=== PATIENT | female | born 1980 | race African-American/Black ===

== ENCOUNTER 2016-11-07 08:59 | Emergency (ER) | payer MEDICAID ==
[~2016-11-07] VITALS: Ht 170.2 cm; Wt 68.0 kg
[2016-11-07] VITALS (42 sets, daily range): BP systolic 117–239; BP diastolic 60–110; PULSE 44–108; RESP 16–22; TEMP 97.7–97.9; O2SAT 97–100
[~2016-11-07 08:59] MED LIST: CYCL-36 PO; IBUP600T26 PO; PRIN10TA PO
--- NOTE | 2016-11-07 09:14 | PD ---
HPI Chief Complaint: GI Complaint Time Seen by Provider: 09:14 Travel History International Travel<30 days: No Contact w/Intl Traveler<30days: No Traveled to known affect area: No History of Present Illness HPI 36-year-old female came to the emergency room with history of headache, dizziness, nausea, vomiting, left-sided chest pain and just not feeling well. She appeared lethargic and I had to ask her multiple times in order to get a proper answer. Her blood pressure upon arrival into the room was 235 systolic. She appeared to be in moderate distress. She was diaphoretic as well. At that time there was no family member next to her to give any additional history. Patient told me that she has history of hypertension and takes a medication like she supposed to. She took a dose of that this morning. She missed the dose the day before yesterday. [facility] Past Medical History Narrative Medical List of her past medical, surgical, social and family history is reviewed from the nursing note. Cardiovascular Problems: Yes (htn) Family History Family Hypercholesterolemia: Yes Social History Alcohol Use: Yes Tobacco Use: Yes Substance Use: Yes (marijuana) Allergies-Medications (Allergen,Severity, Reaction): Coded Allergies: No Known Allergies (Verified , 11/07/16) Comments No known drug allergies. Reported Meds & Prescriptions Reported Meds & Active Scripts Active Reported Metoprolol Tartrate 25 Mg Tab 25 Mg PO BID Narrative Medication List of her home medications reviewed from the nursing note. Review of Systems Except as stated in HPI: all other systems reviewed are Neg Physical Exam Narrative GENERAL: Lethargic, moderate distress SKIN: Cool and diaphoretic HEAD: Atraumatic. Normocephalic. EYES: Pupils equal and round. No scleral icterus. No injection or drainage. ENT: No nasal bleeding or discharge. Mucous membranes pink and moist. NECK: Trachea midline. No JVD. CARDIOVASCULAR: Regular rate and rhythm. No murmur appreciated. RESPIRATORY: No accessory muscle use. Clear to auscultation. Breath sounds equal bilaterally. GASTROINTESTINAL: Abdomen soft, non-tender, nondistended. Hepatic and splenic margins not palpable. MUSCULOSKELETAL: No obvious deformities. No clubbing. No cyanosis. No edema. NEUROLOGICAL: Lethargic and answering questions slow but appropriately. GCS of 14. No obvious cranial nerve deficits. Motor strength was tested and was 4 out of 5 on all 4 extremities. Patient had to be asked multiple times to move her extremity and then she slowly did. Normal speech. PSYCHIATRIC: Appropriate mood and affect; insight and judgment normal. Data Data Last Documented VS Vital Signs Date Time Temp Pulse Resp B/P Pulse Ox O2 Delivery O2 Flow Rate FiO2 11/07/16 16:45 78 20 123/62 100 Ventilator 40 11/07/16 14:40 97.7 Orders Electrocardiogram (11/07/16:17) Prothrombin Time / Inr (Pt) (11/07/16 09:17) Complete Blood Count With Diff (11/07/16:17) Comprehensive Metabolic Panel (11/07/16:17) Creatine Kinase (Cpk) (11/07/16:17) Drug Screen, Random Urine (11/07/16:17) Troponin I (11/07/16:17) Urinalysis - C+S If Indicated (11/07/16 09:17) Ct Brain W/O Iv Contrast(Rout) (11/07/16 09:17) Chest, Single Ap (11/07/16:17) Ecg Monitoring (11/07/16 09:17) Iv Access Insert/Monitor (11/07/16:17) Oximetry (11/07/16 09:17) Sodium Chloride 0.9% Flush (Ns Flush) (11/07/16 09:30) Hydralazine Inj (Apresoline Inj) (11/07/16 09:30) Clonidine (Catapres) (11/07/16 09:30) Ondansetron Inj (Zofran Inj) (11/07/16 09:30) Nicardipine Inj (Cardene Inj) (11/07/16 09:43) Nicardipine Inj (Cardene Inj) (11/07/16 09:45) Rocuronium Inj (Zemuron Inj) (11/07/16 10:00) Etomidate Inj (Amidate Inj) (11/07/16 10:00) Propofol 1000 Mg/100 Ml Inj (Diprivan 10 (11/07/16 10:00) Midazolam 100 Mg/Ml Inj (Versed 100 Mg/M (11/07/16 10:00) Urinary Catheter Insert/Apply (11/07/16 09:47) ^ Orogastric Tube (11/07/16 09:47) Propofol 1000 Mg/100 Ml Inj (Diprivan 10 (11/07/16 09:49) Etomidate Inj (Amidate Inj) (11/07/16 09:49) Rocuronium Inj (Zemuron Inj) (11/07/16 09:49) Mannitol Inj (Mannitol Inj) (11/07/16 10:15) Cta Brain W Iv Contrast W 3d (11/07/16 ) Mannitol Inj (Mannitol Inj) (11/07/16 10:13) Chest, Single Ap (11/07/16 ) Potassium Chlor 20 Meq Premix (Kcl 20 Me (11/07/16 10:30) Cta Neck W Iv Contrast W 3d (11/07/16 ) Chest, Single Ap (11/07/16 ) Urine Culture (11/07/16 10:28) Iohexol 350 Inj (Omnipaque 350 Inj) (11/07/16 11:16) Arterial Blood Gas (Abg) (11/07/16 11:20) Midazolam 100 Mg/Ml Inj (Versed 100 Mg/M (11/07/16 11:27) Radiology Film Requests (11/07/16 ) Radiology Film Requests (11/07/16 ) Radiology Film Requests (11/07/16 ) Radiology Film Requests (11/07/16 ) Radiology Film Requests (11/07/16 ) Arterial Blood Gas (Abg) (11/07/16 12:43) Resp Ventilation- Volume (11/07/16 10:01) Labs Laboratory Tests Test 11/07/16 11/07/16 11/07/16 11/07/16 09:30 10:28 11:20 12:43 White Blood Count 8.0 TH/MM3 Red Blood Count 4.42 MIL/MM3 Hemoglobin 12.5 GM/DL Hematocrit 36.9 % Mean Corpuscular Volume 83.6 FL Mean Corpuscular Hemoglobin 28.3 PG Mean Corpuscular Hemoglobin 33.9 % Concent Red Cell Distribution Width 15.8 % Platelet Count 162 TH/MM3 Mean Platelet Volume 9.1 FL Neutrophils (%) (Auto) 56.7 % Lymphocytes (%) (Auto) 31.8 % Monocytes (%) (Auto) 5.3 % Eosinophils (%) (Auto) 5.6 % Basophils (%) (Auto) 0.6 % Neutrophils # (Auto) 4.5 TH/MM3 Lymphocytes # (Auto) 2.5 TH/MM3 Monocytes # (Auto) 0.4 TH/MM3 Eosinophils # (Auto) 0.4 TH/MM3 Basophils # (Auto) 0.0 TH/MM3 CBC Comment DIFF FINAL Differential Comment Prothrombin Time 10.9 SEC Prothromb Time International 1.0 RATIO Ratio Sodium Level 138 MEQ/L Potassium Level 2.8 MEQ/L Chloride Level 105 MEQ/L Carbon Dioxide Level 20.8 MEQ/L Anion Gap 12 MEQ/L Blood Urea Nitrogen 5 MG/DL Creatinine 0.89 MG/DL Estimat Glomerular Filtration 86 ML/MIN Rate Random Glucose 132 MG/DL Calcium Level 8.8 MG/DL Total Bilirubin 0.4 MG/DL Aspartate Amino Transf 22 U/L (AST/SGOT) Alanine Aminotransferase 16 U/L (ALT/SGPT) Alkaline Phosphatase 86 U/L Total Creatine Kinase 92 U/L Troponin I 0.10 NG/ML Total Protein 8.5 GM/DL Albumin 3.7 GM/DL Urine Color LIGHT-YELLOW Urine Turbidity HAZY Urine pH 8.0 Urine Specific Clark 1.008 Urine Protein NEG mg/dL Urine Glucose (UA) NEG mg/dL Urine Ketones 10 mg/dL Urine Occult Blood NEG Urine Nitrite NEG Urine Bilirubin NEG Urine Urobilinogen LESS THAN 2.0 MG/DL Urine Leukocyte Esterase NEG Urine RBC LESS THAN 1 /hpf Urine WBC 2 /hpf Urine Squamous Epithelial <1 /hpf Cells Urine Amorphous Sediment FEW Urine Bacteria OCC /hpf Urine Mucus FEW /lpf Microscopic Urinalysis Comment CATH-CULTURE IND Urine Opiates Screen NEG Urine Barbiturates Screen NEG Urine Amphetamines Screen NEG Urine Benzodiazepines Screen NEG Urine Cocaine Screen NEG Urine Cannabinoids Screen POS Blood Gas Puncture Site RT RADIAL RT BRACHIAL Blood Gas Patient Temperature 98.6 98.6 Blood Gas HCO3 24 mmol/L 23 mmol/L Blood Gas Base Excess 0.4 mmol/L -0.4 mmol/L Blood Gas Oxygen Saturation 98 % 95 % Arterial Blood pH 7.46 7.48 Arterial Blood Partial 34 mmHg 31 mmHg Pressure CO2 Arterial Blood Partial 485 mmHG 90 mmHG Pressure O2 Arterial Blood Oxygen Content 18.0 Vol % 16.5 Vol % Arterial Blood 2.0 % 1.7 % Carboxyhemoglobin Arterial Blood Methemoglobin 0.5 % 0.6 % Blood Gas Hemoglobin 12.2 G/DL 12.3 G/DL Oxygen Delivery Device VENT VENT Blood Gas Ventilator Setting AC16/500/PEEP3 AC20/500/PEEP3 Blood Gas Inspired Oxygen 100 % 100 % MDM Medical Decision Making Medical Screen Exam Complete: Yes Emergency Medical Condition: Yes Medical Record Reviewed: Yes Interpretation(s) Twelve-lead EKG was reviewed by me. Normal sinus rhythm, normal axis, bradycardia, nonspecific ST-T wave changes. Heart rate of 57 bpm per Differential Diagnosis Intracranial bleed, hypertensive emergency Narrative Course 10:27 AM patient initially was taken immediately to the CT scanner and also was given 20 mg of IV hydralazine to bring the blood pressure down. Soon after the CT I was notified that she had a massive intraparenchymal bleed in her left occipital lobe. I have contacted the neurosurgeon who is scrubbed in the OR. I spoke with the OR nurse who relayed the message about the CT finding. I was told to give the patient 50 mg of IV mannitol and to get a CT angiogram of the brain. I decided to intubate the patient to protect her airway since her mental status was progressively going down. Her GCS was 12 just before I decided to intubate her. Please refer to please refer to my procedure note regarding the intubation. I spoke with her partner/significant other and told her about the CT finding and the diagnosis. Awaiting for the CT brain angiogram to be done and resulted. Patient was started on Cardene drip and propofol drip. 10:30 AM her potassium is critically low and I will replace that. Her troponin is slightly elevated probably from the intracranial hemorrhage. She is somewhat acidotic with a bicarbonate being 20 as well. 10:33 AM chest x-ray was reviewed by me. The ET tube was just at the doyle. I asked the respiratory therapist to pull the tube out by 1.5 cm. Patient will be going to CT soon. 11:48 AM I was told by the OR nurse of Dr. Gotti that patient needs to be transferred out since the CT angiogram shows AVM as well as an aneurysm. I discussed the case with Dr. Qiu from [facility] who is the neurosurgeon and has accepted the patient. He wants the patient in the neuro critical ICU and I'm waiting for the winch derrick operator to call back so that I can discuss the case with him as well. I've been told his name is Dr. Nguyen. CD are being made of the films. Patient's last blood pressure was 168/75. Nurse is going up on the Cardene drip. Patient continues to be in critical condition. 12:08 PM I just spoke with Dr. Nguyen from neuro ICU at [facility] and he has accepted the case. [facility] will be sending their helicopter and currently waiting for them to call us and coordinate. Patient's last blood pressure when I was in the room was 150 systolic. Pupils are equal and reactive and she looks well sedated. Critical Care Narrative Aggregate critical care time was 150 minutes. Time to perform other separately billable procedures was not included in the critical care time. My time did not include minutes spent treating any other patients simultaneously or on activities that did not directly contribute to the patient's treatment. The services I provided to this patient were to treat and/or prevent clinically significant deterioration that could result in: Altered mental status, hypertensive emergency, intracranial bleed, Cardene drip, vent management, coordinating emergent transfer I provided critical care services requiring my management, as noted below: Chart data review, documentation time, medication orders and management, vital sign assessments/reviewing monitor data, ordering and reviewing lab tests, ordering and interpreting/reviewing x-rays and diagnostic studies, care of the patient and discussion of the patient with the admitting physicians. Procedures Procedure Narrative After the risks and benefits were discussed the following procedure was performed: INTUBATION: The patient was put in optimal position for the procedure. Rapid sequence intubation was initiated by me using 20 milligrams of etomidate IV and 100 milligrams of rocuronium IV. The patient was intubated with a 7.5 cuffed endotracheal tube. Tube placement was confirmed by visualization of the tube and balloon passing through the cords, capnometry and subsequent chest x-ray. Breath sounds were equal and well aerated bilaterally postintubation. No breath sounds over stomach. Patient tolerated procedure well. EKG Prior to Arrival: No Physician Communication Physician Communication Dr. Gotti, Dr. Qiu from [facility], Dr. Nguyen Diagnosis Primary Impression: Intraparenchymal hemorrhage of brain Additional Impressions: Hypertensive emergency Hypokalemia Respiratory failure Qualified Code: J96.00 - Acute respiratory failure, unspecified whether with hypoxia or hypercapnia Anterior cerebral artery aneurysm Cerebral AVM Disposition: 70 TRANSFER TO OTHER FACILITY Condition: Critical Yun Chavez MD Nov 07, 2016 09:14
[2016-11-07] MEDS ORDERED: hydrALAZINE HCL 20 MG/ML VIAL IV PUSH ONE (09:30)
[2016-11-07] MEDS ORDERED: cloNIDine HCL 0.2 MG TAB PO ONE (09:30)
[2016-11-07] MEDS ORDERED: ONDANSETRON HCL 4 MG/2 ML VIAL IV PUSH ONE (09:30)
[2016-11-07] MEDS ORDERED: SODIUM CHLORIDE 0.9% FLUSH 10 ML FLUSH IVF PRN (09:30)
--- NOTE | 2016-11-07 09:39 | RADRPT ---
EXAM DATE/TIME: 11/07/2016 09:17 [facility] COMPARISON: No previous studies available for comparison. INDICATIONS : Vomiting, short of breath, vertigo today MEDICAL HISTORY : None. SURGICAL HISTORY : None. ENCOUNTER: Initial ACUITY: 1 day PAIN SCORE: 0/10 LOCATION: Bilateral chest FINDINGS: A single view of the chest demonstrates the lungs to be symmetrically aerated without evidence of mas s, infiltrate or effusion. The cardiomediastinal contours are unremarkable. Osseous structures are intact. CONCLUSION: No acute disease. Jag Oshea MD on November 07, 2016 at 9:37 Board Certified Radiologist. This report was verified electronically.
[2016-11-07] MEDS ORDERED: niCARdipine INJ 25 MG in SODIUM CHLOR 0.9% 250 ML INJ 250 ML IV SCH (09:45)
[2016-11-07] MEDS ORDERED: PROPOFOL 1000 MG/100 ML INJ 100 ML ONE (09:49)
[2016-11-07] MEDS ORDERED: ROCURONIUM INJ 50 MG/5 ML VIAL ONE (09:49)
[2016-11-07] MEDS ORDERED: ETOMIDATE 20 MG/10 ML VIAL ONE (09:49)
[2016-11-07 09:50] LABS: AUTOMATED NEUTROPHIL # 4.5 TH/MM3 (1.8-7.7); BASOPHIL % 0.6 % (0.0-2.0); EOSINOPHIL # 0.4 TH/MM3 (0-0.4); EOSINOPHIL % 5.6 % (0.0-4.0); HEMATOCRIT 36.9 % (35.0-46.0); HEMO FLAGS DIFF FINAL; LYMPH % 31.8 % (9.0-44.0); LYMPHOCYTE # 2.5 TH/MM3 (1.0-4.8); MEAN CELL VOLUME 83.6 FL (80.0-100.0); MEAN CORPUSCULAR HEMOGLOBIN 28.3 PG (27.0-34.0); MEAN CORPUSCULAR HGB CONC 33.9 % (32.0-36.0); MONO % 5.3 % (0.0-8.0); NEUT % 56.7 % (16.0-70.0); PLATELET COUNT 162 TH/MM3 (150-450); RED BLOOD COUNT 4.42 MIL/MM3 (4.00-5.30); RED CELL DISTRIBUTION WIDTH 15.8 % (11.6-17.2)
[2016-11-07 09:55] LABS: PROTHROMBIN TIME - PATIENT 10.9 SEC (9.8-11.6)
--- NOTE | 2016-11-07 09:56 | RADRPT ---
EXAM DATE/TIME: 11/07/2016 09:38 [facility] COMPARISON: CT BRAIN W/O CONTRAST, December 22, 2012, 14:43. INDICATIONS : Cephalgia, hypertension. RADIATION DOSE: 37.23 CTDIvol (mGy) MEDICAL HISTORY : Hypertension. SURGICAL HISTORY : None. ENCOUNTER: Initial ACUITY: 1 day PAIN SCALE: 4/10 LOCATION: cranial TECHNIQUE: Multiple contiguous axial images were obtained of the head. Using automated exposure control and adj ustment of the mA and/or kV according to patient size, radiation dose was kept as low as reasonably a chievable to obtain optimal diagnostic quality images. DICOM format image data is available electro nically for review and comparison. FINDINGS: There is a slightly less than 6.5 cm parenchymal hematoma in the left occipital region. There is mode rate regional mass effect with effacement of the hemispheric cortical sulci and compression and displ acement of the ipsilateral lateral ventricle. There is slight associated subfalcine midline shift. Th ere is no evidence of hemorrhage in the contralateral right hemisphere or in the posterior fossa. The extracranial structures are grossly benign. CONCLUSION: 6.5 cm left occipital parenchymal hematoma Latrell Reich MD on November 07, 2016 at 9:49 Board Certified Radiologist. This report was verified electronically.
[2016-11-07] MEDS ORDERED: ETOMIDATE 20 MG/10 ML VIAL IV PUSH ONE (10:00)
[2016-11-07] MEDS ORDERED: MIDAZOLAM 100 MG/ML INJ 100 ML IV SCH (10:00)
[2016-11-07] MEDS ORDERED: PROPOFOL 1000 MG/100 ML INJ 100 ML IV SCH (10:00)
[2016-11-07] MEDS ORDERED: ROCURONIUM INJ 100 MG/10 ML VIAL IV ONE (10:00)
[2016-11-07 10:12] LABS: ALKALINE PHOSPHATASE 86 U/L (45-117); ALT (GPT) 16 U/L (10-53); ANION GAP 12 MEQ/L (5-15); AST (GOT) 22 U/L (15-37); BICARBONATE 20.8 MEQ/L (21.0-32.0); BLOOD UREA NITROGEN 5 MG/DL (7-18); CHLORIDE 105 MEQ/L (98-107); GLOMERULAR FILTRATION RATE 86 ML/MIN (>89); SODIUM (NA) 138 MEQ/L (136-145); TOTAL BILIRUBIN ADULT 0.4 MG/DL (0.2-1.0)
[2016-11-07] MEDS ORDERED: MANNITOL INJ 50 ML ONE (10:13)
[2016-11-07] MEDS ORDERED: MANNITOL 12.5 GM/50 ML VIAL IV ONE (10:15)
[2016-11-07 10:28] LABS: CREATINE KINASE 92 U/L (26-192)
[2016-11-07 10:30] LABS: POTASSIUM 2.8 MEQ/L (3.5-5.1)
--- NOTE | 2016-11-07 10:46 | RADRPT ---
EXAM DATE/TIME: 11/07/2016 10:23 [facility] COMPARISON: CHEST SINGLE AP, November 07, 2016, 9:17. INDICATIONS : Headache and dizziness. MEDICAL HISTORY : None. SURGICAL HISTORY : None. ENCOUNTER: Initial ACUITY: 1 day PAIN SCORE: Non-responsive. LOCATION: Bilateral chest FINDINGS: The endotracheal tube has its tip directed into the right mainstem bronchus. This should be pulled ba ck 3 cm for more optimal positioning. A nasogastric has tip in stomach. Minimal central pulmonary vas cular congestion is noted. The heart is stable. CONCLUSION: Endotracheal tube has its tip directed into the right mainstem bronchus. This should be pulled back 3 cm for more optimal positioning. Minimal central pulmonary vascular congestion. Jag sOhea MD on November 07, 2016 at 10:43 Board Certified Radiologist. This report was verified electronically.
[2016-11-07 11:05] LABS: AMPHETAMINE, URINE NEG (NEG); BARBITURATES, URINE NEG (NEG); COCAINE, URINE NEG (NEG)
[2016-11-07 11:08] LABS: BACTERIA, URINE OCC /hpf; BLOOD, URINE NEG (NEG); COMMENT (UR) CATH-CULTURE IND; CULTURE IF INDICATED CATH CULTURE IND; GLUCOSE,URINE NEG (NEG); KETONE, URINE 10 mg/dL (NEG); MUCUS URINE FEW /lpf (OCC); NITRITE,URINE NEG (NEG); SQUAMOUS EPITHELIAL CELL URINE <1 /hpf (0-5); URINE COLOR LIGHT-YELLOW (YELLW/STRAW)
[2016-11-07] MEDS ORDERED: IOHEXOL 350 MG/ML 10 ML VIAL (for RAD DIAG) IV ONE (11:16)
[2016-11-07 11:25] LABS: BLOOD GAS BASE EXCESS 0.4 mmol/L (-2-2); BLOOD GAS HCO3 24 mmol/L (22-26); BLOOD GAS METHEMOGLOBIN 0.5 % (0-2); BLOOD GAS O2 HGB SATURATION 98 % (90-100); BLOOD GAS PCO2 34 mmHg (38-42); BLOOD GAS PO2 485 mmHG (61-120); BLOOD GAS TOTAL HGB 12.2 G/DL (12.0-16.0); CRITICAL VALUE NO; OXYGEN DEVICE VENT; TEMP CORR TO 98.6
[2016-11-07 11:26] LABS: DRAW SITE RT RADIAL; FIO2 100 %; NUMBER OF ARTERIAL PUNCTURES 1; STAT NO; ULNAR PULSE PRESENT; VENT SETTINGS AC16/500/PEEP3
[2016-11-07] MEDS ORDERED: MIDAZOLAM 100 MG/ML INJ 100 ML ONE (11:27)
[2016-11-07] MEDS: POTASSIUM CHLOR 20 MEQ PREMIX 100 ML IV SCH ×2 (11:35→13:30)
--- NOTE | 2016-11-07 11:35 | RADRPT ---
EXAM DATE/TIME: 11/07/2016 10:53 [facility] COMPARISON: CT BRAIN W/O CONTRAST, November 07, 2016, 9:38. CT BRAIN W/O CONTRAST, December 22, 2012, 14:43. CTA BRAI N W 3D RECON, November 07, 2016, 10:53. INDICATIONS : New brain bleed, headache with nausea and vomiting today IV CONTRAST: 70 cc Omnipaque 350 (iohexol) IV ; Cumulative dose for multiple exams. RADIATION DOSE: 27.74 CTDIvol (mGy) ; Combined studies MEDICAL HISTORY : Hypertension. SURGICAL HISTORY : None. ENCOUNTER: Initial ACUITY: 1 day PAIN SCALE: Non-responsive LOCATION: cranial Elevated flow velocities and ICA/CCA ratios have been found to correlate with increased degrees of vessel stenosis, calculated as percentage of diameter relative to a normal segment of distal ICA/CCA. TECHNIQUE: Volumetric scanning was performed using a multirow detector CT scanner. The data was post processed with a variety of visualization algorithms including full-volume maximum intensity projection, multip lanar sliding thin-slab reformation, curved-planar reformation, and surface-rendering techniques. Us ing automated exposure control and adjustment of the mA and/or kV according to patient size, radiatio n dose was kept as low as reasonably achievable to obtain optimal diagnostic quality images. DICOM f ormat image data is available electronically for review and comparison. FINDINGS: AORTIC ARCH: There is a three-vessel origin of the great vessels from the aorta. No evidence of ostial narrowing. RIGHT CAROTID: The common carotid artery is intact. The carotid bulb has a normal configuration without ulceration o r narrowing. The internal carotid artery lumen is smooth without stenosis. The external carotid kadie ry is intact. LEFT CAROTID: The common carotid artery is intact. The carotid bulb has a normal configuration without ulceration or narrowing. The internal carotid artery lumen is smooth without stenosis. The external carotid ar murtaza is intact. VERTEBRALS: The vertebral arteries have a symmetric diameter. No stenotic lesions are seen. CONCLUSION: Normal examination. Latrell Reich MD on November 07, 2016 at 11:27 Board Certified Radiologist. This report was verified electronically.
[2016-11-07] MEDS ORDERED: METO25TA3 PO (12:05)
--- NOTE | 2016-11-07 12:06 | RADRPT ---
EXAM DATE/TIME: 11/07/2016 10:53 [facility] COMPARISON: CT BRAIN W/O CONTRAST, November 07, 2016, 9:38. INDICATIONS : New brain bleed IV CONTRAST: 70 cc Omnipaque 350 (iohexol) IV RADIATION DOSE: 27.74 CTDIvol (mGy) ; Combined studies MEDICAL HISTORY : Hypertension. SURGICAL HISTORY : None. ENCOUNTER: Initial ACUITY: 1 day PAIN SCALE: Non-responsive LOCATION: cranial TECHNIQUE: Volumetric scanning was performed using a multi-row detector CT scanner. The data was post processed with a variety of visualization algorithms including full volume maximum intensity projection, multi -planar sliding thin slab reformation, curved planar reformation, and surface rendering techniques. Using automated exposure control and adjustment of the mA and/or kV according to patient size, radiat ion dose was kept as low as reasonably achievable to obtain optimal diagnostic quality images. DICO M format image data is available electronically for review and comparison. FINDINGS: Examination is abnormal. There is a bilobed collection of contrast measuring 3.5 x 3.7 mm and 2.9 x 4 .6 mm noted posterior to the large left occipital parenchymal hemorrhage with an apparently enlarged central draining vein concerning for an occipital AV malformation. Additionally, there is a focal col lection of contrast seen medially in the left parietal high convexity adjacent to the falx which appe ars to arise from a distal left A4 branch measuring 6.8 x 4.7 x 7.2 mm consistent with aneurysm. With there is a more subtle 2.0 x 3.3 x 2.2 mm apparent aneurysm arising from the left temporal M3 branch . The MCA and NICOLÁS branches are patent without significant focal stenosis or occlusion. There are nearly codominant vertebral arteries with patent flow to the basilar artery. Basilar artery is patent with flow to the posterior cerebral arteries bilaterally. Remainder of the exam demonstrates a large 6.5 cm left occipital lobe parenchymal hemorrhage with ass ociated mass effect. There is effacement of the left lateral ventricle with nearly 9 mm left to right subfalcine shift. Basilar cisterns appear maintained at this time. CONCLUSION: 1. Abnormal CTA examination. 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 2. 7 mm left distal NICOLÁS and apparent 3 mm left distal MCA aneurysms, as above. 3. Further evaluation may be performed with cerebral angiography. Sylvester Dominique MD on November 07, 2016 at 11:07 Board Certified Radiologist. This report was verified electronically.
--- NOTE | 2016-11-07 12:19 | RADRPT ---
EXAM DATE/TIME: 11/07/2016 11:13 [facility] COMPARISON: No previous studies available for comparison. INDICATIONS : Evaluate ET tube placement. MEDICAL HISTORY : Hypertension. SURGICAL HISTORY : None. ENCOUNTER: Initial ACUITY: 1 day PAIN SCORE: Non-responsive. LOCATION: Bilateral chest FINDINGS: Endotracheal tube is present in good position with tip 3 cm above the doyle. Nasogastric tube descen ds to the stomach with sidehole in the distal esophagus. Advancement about 5 cm would be optimal. The lungs are focally clear. No pleural effusion suspected. Cardiac contours are satisfactory. CONCLUSION: Slight advancement of the nasogastric tube would be optimal. No acute cardiopulmonary disease Latrell Reich MD on November 07, 2016 at 12:06 Board Certified Radiologist. This report was verified electronically.
[2016-11-07 12:48] LABS: BLOOD GAS BASE EXCESS -0.4 mmol/L (-2-2); BLOOD GAS CARBOXYHEMOGLOBIN 1.7 % (0-4); BLOOD GAS HCO3 23 mmol/L (22-26); BLOOD GAS METHEMOGLOBIN 0.6 % (0-2); BLOOD GAS O2 HGB SATURATION 95 % (90-100); BLOOD GAS OXYGEN CONTENT 16.5 Vol % (12.0-20.0); BLOOD GAS PCO2 31 mmHg (38-42); BLOOD GAS PO2 90 mmHG (61-120); BLOOD GAS TOTAL HGB 12.3 G/DL (12.0-16.0); CRITICAL VALUE NO; DRAW SITE RT BRACHIAL; FIO2 100 %; NUMBER OF ARTERIAL PUNCTURES 1; OXYGEN DEVICE VENT; STAT NO; TEMP CORR TO 98.6; ULNAR PULSE PRESENT; VENT SETTINGS AC20/500/PEEP3
--- NOTE | 2016-11-07 17:19 | EKG ---
Date Performed: 11/07/2016 Time Performed: 09:22:22 PTAGE: 36 years EKG: SINUS BRADYCARDIA NONSPECIFIC T-WAVE ABNORMALITY BORDERLINE ECG PREVIOUS TRACING : 06/23/2015 16.59 Compared to prior tracing no significant change DOCTOR: Jordan Bingham Interpretating Date/Time 11/07/2016 17:17:53
== END 2016-11-07 17:16 | disposition short-term general hospital (02) ==
LOC: NEPD 08:59
DX: I61.8 Other nontraumatic intracerebral hemorrhage (principal); I16.1 Hypertensive emergency; E87.6 Hypokalemia; J96.00 Acute respiratory failure, unspecified whether with hypoxia or hypercapnia; I67.1 Cerebral aneurysm, nonruptured; Q28.2 Arteriovenous malformation of cerebral vessels; R07.89 Other chest pain; R53.81 Other malaise; R53.83 Other fatigue; R61 Generalized hyperhidrosis; R94.31 Abnormal electrocardiogram [ECG] [EKG]; I10 Essential (primary) hypertension; Z72.0 Tobacco use; Z79.899 Other long term (current) drug therapy
CPT/HCPCS: 31500; 36600; 51702; 70450; 70496; 70498; 71010; 80053; 80307; 81001; 82550; 82805; 84484; 85025; 85610; 87086; 93005; 96365; 96366; 96368; 96375; 96376; 99291; J0360; J2150; J2250; J2405; J3480; J7050; Q9967